=== PATIENT | male | born 1990 | race Caucasian/White ===

== ENCOUNTER 2016-09-22 18:28 | Emergency (ER) | payer SELFPAY ==
[2016-09-22] MEDS ORDERED: LIDOCAINE 1% 50 ML MDV SUBQ STA (21:10)
[2016-09-22] MEDS ORDERED: LIDOCAINE 1% 2 ML VIAL ONE (21:13)
[2016-09-22] MEDS ORDERED: CEPHALEXIN 250 MG CAPSULE PO STA (21:36)
[2016-09-22] MEDS ORDERED: CEPHALEXIN 250 MG CAPSULE PO ONE (21:37)
== END 2016-09-22 21:50 | disposition home or self-care (01) ==
DX: S61.012A Laceration without foreign body of left thumb without damage to nail, initial encounter (principal); W26.0XXA Contact with knife, initial encounter; Y93.G3 Activity, cooking and baking; Y92.030 Kitchen in apartment as the place of occurrence of the external cause
CPT/HCPCS: 12001; 99283; A9270